=== PATIENT | female | born 1995 | race Caucasian/White ===

== ENCOUNTER 2020-08-14 07:53 | Inpatient (IN) | payer OTHER, SELFPAY ==
[2020-08-14] VITALS (84 sets, daily range): BP systolic 100–189; BP diastolic 55–110; PULSE 73–116; RESP 17–18; TEMP 35.9–36.6; O2SAT 73–100; BMI 29.9
[2020-08-14 08:33] LABS: Basophils % 0.3 %; Eosinophils # 0.1 10^3/uL (0.0-0.8); Eosinophils % 1.7 %; Hemoglobin 11.5 g/dL (11.5-15.3); Lymphocytes # 1.3 10^3/uL (0.8-4.8); Lymphocytes % 17.1 %; Mean Corpuscular HGB Conc 33.8 g/dL (30.0-36.0); Mean Corpuscular Hemoglobin 30.4 pg (28.0-34.0); Mean Corpuscular Volume 89.9 fL (81-99); Mean Platelet Volume 10.6 fL (7.4-10.4); Monocytes # 0.7 10^3/uL (0.2-0.9); Monocytes % 8.7 %; Neutrophils # 5.64 10^3/uL (1.8-7.7); Neutrophils % 71.8 %; Nucleated Red Blood Cells % 0 %; Platelet Count 257 10^3/cmm (130-400); Red Blood Count 3.78 10^6/uL (4.1-5.3); Red Cell Distribution Width 12.5 % (12.1-15.1); White Blood Count 7.8 10^3/uL (4.0-10.0)
[2020-08-14] MEDS: dextrose 5%-lactated ringers 1,000 ML 125 ML IV ×2 (08:52→16:29)
[2020-08-14] MEDS: oxytocin 30 UNIT/500 ML BAG IV (08:53)
--- NOTE | 2020-08-14 13:54 | PM.OPHPUD ---
Labor & Delivery H&P Update Date of Procedure: August 14, 2020 Date H&P Performed: 08/12/20 H&P update information: I have reviewed H&P completed within last 30 days Admission Diagnosis: -induced hypertension Other information: The patient was admitted for induction at 39 weeks gestation. She had had elevated blood pressures in office but her highest 1 today has been 141/87. She has been started on Pitocin and is at 28 units. I just performed artificial rupture of membranes with a small amount of blood-tinged but otherwise clear fluid. Continue expectant management Related Problem List Diagnoses (1) -induced hypertension in third trimester:
[2020-08-14] MEDS: fentaNYL 50 mcg/mL INJ 2mL IVP ×3 (15:32→17:32)
[2020-08-14] MEDS: lactated ringers 1,000 ML 999 ML IV ×2 (17:29→18:36)
--- NOTE | 2020-08-14 18:31 | ANES.PREANE2 ---
Pre-Anesthetic Assessment Pre-Anesthetic Assessment: Height/Weight: Height 1.75 m Weight 92.079 kg Temp Pulse Resp BP 97.0 F L 92 18 159/89 08/14/20 16:08 08/14/20 18:25 08/14/20 17:32 08/14/20 18:25 Preop Diagnosis: labor pains Proposed Procedure: epidural Was Beta Maicol taken within 24 hours: N/A Was Clonidine taken within 24 hours: N/A Social: Social History: No alcohol and No tobacco Exam: Pre-Anes Outpt Exam: alert, oriented x 3, clear to auscultation bilaterally and regular rate & rhythm Airway: Submandibular: WNL Cervical ROM: WNL MP: 2 Dentition: Full Pulmonary: Pulmonary: None reported CV/HEM: CV/HEM: HTN : : None reported Hepatic: Hepatic: None reported Metabolic: Metabolic: None reported Musc/skel: Musc/skel: None reported Neuropsych: Neuropsych: None reported Anesthetic Plan: ASA status: 2 Anesthesia: Regional (specify below) Risk of > 500 ml blood loss (7ml/kg in children): No Meds/Allergies Current Medications: Current Medications Generic Name Dose Route Start Last Admin Trade Name Freq PRN Reason Stop Dose Admin Fentanyl 25 - 100 mcg 08/14/20 13:48 08/14/20 17:32 Fentanyl 50 Mcg/ Ml Inj 2ml IVP 75 mcg Q1H PRN Administration SEVERE PAIN Oxytocin 30 unit in 500 ml s @ 2 mls/hr 08/14/20 08:00 08/14/20 13:13 Pitocin IV 28 milliunit/min .Q24H ELANA 28 mls/hr Titration Protocol 2 MILLIUNIT/MIN Dextrose/Lactated Ringer's 1,000 mls @ 125 m ls/hr 08/14/20 08:00 08/14/20 17:30 Dextrose 5%-Lact ated Ringers IV 0 mls/hr .Q8H ELANA Infusion Lactated Ringer's 1,000 mls @ 999 m ls/hr 08/14/20 13:51 08/14/20 17:29 Lactated Ringers IV 999 mls/hr .Q1H1M PRN Administration See label comment s PFSH Anesthesia Female Reproductive History: : 1 Data Anesthesia CBC & Chem 7: 08/14/20 08:10 Other Labs: Laboratory Results - last 48 hr 08/14/20 08:10 WBC 7.8 RBC 3.78 L Hgb 11.5 Hct 34.0 L MCV 89.9 MCH 30.4 MCHC 33.8 RDW 12.5 Plt Count 257 MPV 10.6 H Neut % (Auto) 71.8 Lymph % (Auto) 17.1 [place] % (Auto) 8.7 Eos % (Auto) 1.7 Baso % (Auto) 0.3 Neut # (Auto) 5.64 Lymph # (Auto) 1.3 [place] # (Auto) 0.7 Eos # (Auto) 0.1 Baso # (Auto) 0.0 Nucleated RBC % (auto) 0 Nucleated RBCs # 0.0 Cardiac Studies: No Data to Display
--- NOTE | 2020-08-14 18:57 | ANES.PROC ---
Anesthesia Procedures Procedure/Date: 08/14/20 epidural Procedure Narrative: epidural complete, bolus given, epidural pump initiated with PROCUREMENT COORDINATOR education given, vitals taken during procedure using OBIX system and satisfactory throughout, patient admits to decrease pain, report of procedure to OB RN Epidural: Time Out Performed: Yes Consents Signed: Procedure Consent Consent: requested by attending/covering physician, from patient, risks and benefits reviewed and patient agrees to proceed Lumbar Level: L3-L4 Epidural position: sitting Epidural procedure: sterile prep of area, 1% lidocaine to numb the area (3 mL), 18 g needle, negative for paresthesia passed, neg for paresthesia, test dose given, 1.5% xylocaine 1:200k epi (5 mL), 0.2% Ropivacaine bolus ml (5 mL), placed PCEA, no systemic response, sterile dressing applied, L.U.D. no apparent complications and 0.2% Ropiavacaine @ mls/hr (13 mL/hr)
[2020-08-14] MEDS: ondansetron 2 mg/ML SDV 2 mL 4 MG IVP (22:34)
[2020-08-15] VITALS (59 sets, daily range): BP systolic 86–166; BP diastolic 53–100; PULSE 78–127; RESP 18; TEMP 36.1–37.7; O2SAT 90–100
[2020-08-15] MEDS: dextrose 5%-lactated ringers 1,000 ML 125 ML IV (00:55)
[2020-08-15] MEDS: oxytocin 30 UNIT/500 ML BAG 600 UNIT IV (01:57)
[2020-08-15] MEDS: lidocaine 2% INJ 20 mL INJECTION (02:10)
--- NOTE | 2020-08-15 02:16 | P.PCNOB_ITS ---
Delivery Note: Date of delivery: August 15, 2020 Pre-Delivery Course: The patient had routine care at [facility]. There were no complications of the until her 38-week visit when she had elevated blood pressures. They were mildly elevated 140/92, 138/100, and did not require medication. Decision was made to go ahead and induce at 39 weeks gestation. Delivery: This is a 25-year-old G1 now P1 at 39 weeks 1day gestation who was admitted for induction secondary to -induced hypertension. The mother cervix was relatively favorable and she was started on Pitocin. She underwent artificial rupture of membranes with clear fluid. Rupture of membranes was approximately 12 hours prior to delivery. She received an epidural for pain management. She had a normal spontaneous vaginal delivery of a viable female weight 3770 g, 8 pounds 5 ounces over an intact perineum. The infant was suctioned at delivery and placed on the mother's chest. The cord was clamped and cut. The placenta was delivered grossly intact and normal to inspection. There was a second-degree left vaginal laceration that was sutured using 3-0 chromic. Estimated blood loss 350 mL. Mother and were doing well after delivery. A&P Assessment and plan (1) -induced hypertension in third trimester: Status: Acute (2) Normal spontaneous vaginal delivery: Status: Acute Coding Level of Care Code Acute Armhole Baster Hand for Chg Fwd Diagnoses -induced hypertension in third trimester O13.3 Normal spontaneous vaginal delivery O80
[2020-08-15] MEDS: miSOPROStol 200 mcg Tablet 800 MCG PO (03:55)
--- NOTE | 2020-08-15 05:14 | PC.NURSE ---
PP bleeding 0353: 340 mL 0404: 105 mL 0455: 60 mL total 505 mL
[2020-08-15] MEDS: prenatal vitamin Capsule 1 CAP PO (08:00)
[2020-08-15] MEDS: ibuprofen 800 mg tablet PO ×3 (08:00→21:12)
[2020-08-15] MEDS: benzocaine-menthol 78 gm Canister 1 SPRAY TOPICAL (08:01)
[2020-08-15] MEDS: docusate sodium 100 mg Capsule PO ×2 (08:01→18:06)
[2020-08-15] MEDS: lanolin oint 7 gm 1 APPLIC TOPICAL (08:01)
[2020-08-15] MEDS: acetaminophen 325 mg Tablet 650 MG PO (13:50)
[2020-08-15 14:03] LABS: Hematocrit 25.4 % (37.0-47.0); Hemoglobin 8.8 g/dL (11.5-15.3); Mean Corpuscular HGB Conc 34.6 g/dL (30.0-36.0); Mean Corpuscular Hemoglobin 31.4 pg (28.0-34.0); Mean Corpuscular Volume 90.7 fL (81-99); Mean Platelet Volume 10.9 fL (7.4-10.4); Platelet Count 251 10^3/cmm (130-400); Red Cell Distribution Width 12.6 % (12.1-15.1); White Blood Count 15.5 10^3/uL (4.0-10.0)
--- NOTE | 2020-08-15 19:51 | PC.NURSE ---
education provided on positioning, deep latch.
[2020-08-16] MEDS: prenatal vitamin Capsule 1 CAP PO (09:30)
[2020-08-16] MEDS: ibuprofen 800 mg tablet PO (09:30)
[2020-08-16] MEDS: docusate sodium 100 mg Capsule PO (09:31)
[2020-08-16 11:10] VITALS: BP 136/70; PULSE 78; TEMP 36
[2020-08-16] MEDS: acetaminophen 325 mg Tablet 650 MG PO (11:13)
--- NOTE | 2020-08-16 12:18 | P.DS_ITS ---
Discharge Providers BIG DATA PLATFORM ARCHITECT Date of Admission: 08/14/20 07:53 Date of Discharge: 08/16/20 Attending Provider at Admission: Danae Gonzalez MD Attending Provider at Discharge: Danae Gonzalez MD Primary Care Provider: Danae Gonzalez MD Diagnoses at Discharge Discharge Diagnosis (1) -induced hypertension in third trimester: Status: Acute (2) Normal spontaneous vaginal delivery: Status: Acute Hospital Course Hospital Course This is a 25-year-old G1 now P1 who was admitted for induction at 39 weeks gestation secondary to -induced hypertension. She had a normal spontaneous vaginal delivery of a viable female . Mother and infant did well after delivery. On day #1 she was ambulating, tolerating a regular diet, had decreased vaginal bleeding and was comfortable with discharge home Information Peripartum Data: Infant Delivery Method: Vaginal Physical Exam HENMT: COMMON NORMALS: normocephalic and atraumatic HEAD & SCALP: normocephalic and atraumatic Eye: COMMON NORMALS: Equal, round and reactive pupils present and EOMs intact bilaterally PUPIL: Yes Equal, round and reactive pupils present GI: COMMON NORMALS: Soft to palpation (Fundus firm U- 2) and non-tender PALPATION: Yes Soft to palpation (Fundus firm U- 2) Extremity: GENERAL: No calf tenderness and Yes edema Urinary Catheter Management^: Arguello: Cath Placed During This Visit: yes, but has since been removed by the nurse Reason for Continuing Indwelling Catheter: Decision to DC Catheter Urinary Catheter Date of Insertion: 08/14/20 Urinary Catheter Time of Insertion: 19:55 Date Urinary Catheter Removed: 08/15/20 Time Urinary Catheter Discontinued: 01:17 Discharge Data Data Completed and Pending: Labs from last 24 hours 08/15/20 13:49 WBC 15.5 H RBC 2.80 L Hgb 8.8 L Hct 25.4 L MCV 90.7 MCH 31.4 MCHC 34.6 RDW 12.6 Plt Count 251 MPV 10.9 H Vitals: Last Vital Signs Temp 96.8 F L 08/16/20 11:10 Pulse 78 08/16/20 11:10 Resp 18 08/15/20 02:32 BP 136/70 08/16/20 11:10 Pulse Ox 99 08/15/20 05:33 Discharge Plan Discharge Patient Disposition: Home Condition: Stable Prescriptions: No Action No Known Home Medications RF: 0 Discharge Orders: Discharge Order (Routine); Ordered 08/16/20 Ordered By: Danae Gonzalez Referrals: Danae Gonzalez MD [Primary Care Provider] - 1 month Discharge Diet: Usual diet Discharge Activity: Limit activity as instructed Patient Instructions: Opioid Safety Discharge Attestations BIG DATA PLATFORM ARCHITECT Time Spent in Discharge Care*: less than 30 min Coding Level of Care Code Acute Advisory Intern for Chg Fwd Diagnoses -induced hypertension in third trimester O13.3 Normal spontaneous vaginal delivery O80
[2020-08-16] MEDS: measles,mumps,rubella pf Vial (w/diluent) 0.5 ML SUBCUT (12:49)
[2020-08-16] MEDS: lanolin oint 7 gm 1 APPLIC TOPICAL (13:39)
== END 2020-08-16 13:45 | disposition home or self-care (01) | DRG 807 ==
PROVIDERS: Admitting Provider Family Medicine; PCP Family Medicine; Visit Provider Family Medicine
DX: O13.4 Gestational [pregnancy-induced] hypertension without significant proteinuria, complicating childbirth (principal); Z37.0 Single live birth; Z3A.39 39 weeks gestation of pregnancy; Z23 Encounter for immunization
CPT/HCPCS: 36415; 51702; 59025; 59409; 85025; 85027; 90707; 96372; 96374; 96375; 98960; J2405; J2795; J3010

== ENCOUNTER 2022-10-24 04:41 | Inpatient (IN) | payer OTHER, SELFPAY ==
[2022-10-24] VITALS (143 sets, daily range): BP systolic 100–208; BP diastolic 50–109; PULSE 76–121; RESP 15–18; TEMP 36.4–36.7; O2SAT 77–100; BMI 31.8
[2022-10-24] MEDS: dextrose 5%-lactated ringers 1,000 ML 125 ML IV ×2 (05:56→16:22)
[2022-10-24] MEDS: ampicillin 2,000 MG in sodium chloride 0.9% (plus) 50 ML 100 MG IV (05:57)
[2022-10-24 05:59] LABS: Basophils % 0.1 %; Eosinophils # 0.1 10^3/uL (0.0-0.8); Eosinophils % 0.9 %; Hematocrit 35.2 % (37.0-47.0); Hemoglobin 11.9 g/dL (11.5-15.3); Lymphocytes # 1.3 10^3/uL (0.8-4.8); Lymphocytes % 15.4 %; Mean Corpuscular HGB Conc 33.8 g/dL (30.0-36.0); Mean Corpuscular Hemoglobin 30.4 pg (28.0-34.0); Mean Corpuscular Volume 89.8 fl (81-99); Mean Platelet Volume 10.5 fL (7.4-10.4); Monocytes # 0.7 10^3/uL (0.2-0.9); Monocytes % 8.2 %; Neutrophils # 6.16 10^3/uL (1.8-7.7); Nucleated Red Blood Cells % 0 %; Platelet Count 225 10^3/cmm (130-400); Red Blood Count 3.92 10^6/uL (4.1-5.3); Red Cell Distribution Width 12.2 % (12.1-15.1); White Blood Count 8.2 10^3/uL (4.0-10.0)
[2022-10-24] MEDS: ampicillin 1,000 MG in sodium chloride 0.9% (plus) 50 ML 100 MG IV ×3 (09:32→18:19)
[2022-10-24] MEDS: ondansetron 2 mg/ML SDV 2 mL 4 MG IVP ×2 (12:56→20:01)
[2022-10-24] MEDS: fentaNYL 50 mcg/mL INJ 2mL IVP (13:17)
[2022-10-24] MEDS: lactated ringers 1,000 ML 999 ML IV ×3 (14:01→16:41)
--- NOTE | 2022-10-24 15:18 | P.ANESASSM_ITS ---
Pre-Anesthetic Assessment Height/Weight: Height 1.75 m Weight 97.976 kg Temp Pulse Resp BP Pulse Ox O2 Del Method 97.9 F 106 H 18 126/85 100 Room Air 10/24/22 04:41 10/24/22 15:15 10/24/22 13:17 10/24/22 15:15 10/24/22 15:15 10/24/22 06:43 Familial anesthetic complications: none Was Beta Maicol taken within 24 hours: N/A Was Clonidine taken within 24 hours: N/A Social No alcohol and No tobacco Exam alert, oriented x 3, clear to auscultation bilaterally and regular rate & rhythm Airway Mallampati: Class II Dentition: full Anesthetic Plan ASA status: 2 Anesthesia: Regional (specify below) Risk of > 500 ml blood loss (7ml/kg in children): No Medications/Allergies Home Medications Medication Instructions Recorded Confirmed Last Taken Type 1 tab PO DAILY 10/24/22 10/24/22 10/23/22 History Allergies Allergy/AdvReac Type Severity Reaction Status Date / Time No Known Allergies Allergy Verified 10/24/22 07:19 Current Medications Generic Name Dose Route Start Last Admin Trade Name Freq PRN Reason Stop Dose Admin Fentanyl 25 - 100 mcg 10/24/22 04:41 10/24/22 13:17 Fentanyl 50 Mcg/Ml Inj 2ml IVP 25 mcg Q1H PRN Administration SEVERE PAIN Lactated Ringer's 1,000 mls @ 999 mls/hr 10/24/22 04:41 10/24/22 14:01 Lactated Ringers IV 999 mls/hr .Q1H1M PRN Administration Per L&D Rescitation Protocol Dextrose/Lactated Ringer's 1,000 mls @ 125 mls/hr 10/24/22 04:45 10/24/22 09 :38 Dextrose 5%-Lactated Ringers IV 125 mls/hr .Q8H ELANA Infusion Ampicillin Sodium 1,000 mg/ 50 mls @ 100 mls/hr 10/24/22 08:45 10/24/22 14:00 Sodium Chloride IV 100 mls/hr Q4H ELANA Administration Protocol Oxytocin 30 unit/ Sodium 503 mls @ 1 mls/hr 10/24/22 09:30 10/24/22 14:00 Chloride IV 10 mls/hr .Q24H ELANA 10 mls/hr Titration Protocol Ondansetron HCl 4 mg 10/24/22 04:41 10/24/22 12:56 Ondansetron 2 Mg/Ml Sdv 2 Ml IVP 4 mg Q4H PRN Administration NAUSEA AND VOMITING PFSH Anesthesia Female Reproductive History : 2 Data Anesthesia 10/24/22 05:55 Short CBC 10/24/22 Range/Units 05:55 WBC 8.2 (4.0-10.0) 10^3/uL Hgb 11.9 (11.5-15.3) g/dL Hct 35.2 L (37.0-47.0) % MCV 89.8 (81-99) fl Plt Count 225 (130-400) 10^3/cmm Neut % (Auto) 75.0 % Neut # (Auto) 6.16 (1.8-7.7) 10^3/uL Cardiac Studies: No Data to Display
--- NOTE | 2022-10-24 15:19 | ANES.PROC ---
Anesthesia Procedures Procedure/Date: 10/24/22 Epidural: Time Out Performed: Yes Consents Signed: Procedure Consent Consent: requested by attending/covering physician, from patient, from other, risks and benefits reviewed and patient agrees to proceed Lumbar Level: L3-L4 Epidural position: sitting Epidural procedure: sterile prep of area, 1% lidocaine to numb the area, 18 g needle, negative for paresthesia passed, neg for paresthesia, 1.5% xylocaine 1:200k epi (5 cc), 0.2% Ropivacaine bolus ml (5), placed PCEA, no systemic response, sterile dressing applied, L.U.D. no apparent complications and 0.2% Ropiavacaine @ mls/hr (10) Additional Comments: LOT at 6 cm, threaded to 12 cm. Patient reported improved pain profile of subsequent contraction. tingling in L leg. States her previous epidural worked better one side also and she had to lay on her side.
--- NOTE | 2022-10-24 18:13 | PM.OPHPUD ---
Labor & Delivery H&P Update Date of Procedure: October 24, 2022 Date H&P Performed: 10/18/22 Admission Diagnosis: with SROM at 38 weeks 6 days gestation GBS positive Planned procedure: expectant management of labor and delivery
--- NOTE | 2022-10-24 18:19 | PM.OBGYPN ---
PREMIUM REPRESENTATIVE Subjective Subjective: Interval history: This is a 27-year-old at 38 weeks 6 days gestation who presented this morning with spontaneous rupture of membranes. She was noted to be GBS positive and was started on ampicillin protocol. Her contractions were spacing out and she was not making much cervical change so she was started on Pitocin. She received an epidural for pain management. I was notified by nursing that after her epidural and once she was 8 cm she began having deep variable decelerations. IV fluid bolus was given and multiple position changes were performed. The Pitocin was cut in half. The patient continued to have deep variables and when I presented I placed a scalp electrode so that they could be more accurately monitored. We also placed an internal pressure catheter to monitor the strength of contractions but unfortunately it was not functioning properly so it was removed. During all of this the variables resolved. Throughout all of it there was moderate variability with accelerations. Contractions were palpating minimal to mild. The Pitocin was increased back to 10. Labor: Dilation (cm): 8 Effacement (%): 90 Station: -2 Amniotic Membrane Status: Ruptured Monitor Mode: External Contraction Pattern: Irregular Vitals/I&O/Wt Last Vital Signs Temp 97.9 F 10/24/22 04:41 Pulse 97 10/24/22 18:14 Resp 18 10/24/22 13:17 BP 137/63 10/24/22 18:10 Pulse Ox 100 10/24/22 18:14 O2 Del Method Room Air 10/24/22 06:43 10/24/22 10/24/22 10/24/22 06:59 14:59 22:59 Intake Total 97.917 / 97.917 154.400 / 794.285 7076.250 / 3035.650 Balance 97.917 / 97.917 154.400 / 603.660 3662.250 / 3035.650 Weight last 48 hrs Weight 97.976 kg Physical Exam Narrative: Comfortable with epidural Data 10/24/22 05:55 A&P Assessment and plan (1) Non-reassuring heart tones complicating , antepartum: The variable decelerations resolved for a period of time. When we increased the Pitocin back to what it was they returned but they are not with every contraction, they are shorter and not as deep. There is still moderate variability with accelerations. I discussed with the parents that iif the deep prolonged variables return we may have to proceed with section. Hopefully she will continue to change without them returning and we can have a normal vaginal delivery. (2) with 38 completed weeks gestation: (3) Group B Streptococcus carrier state affecting : On ampicillin protocol Attestations Medical Necessity Statement*: Expectant management of labor and delivery Coding Level of Care Code Acute Code for Chg Fwd Diagnoses Non-reassuring heart tones complicating , antepartum O36.8390 with 38 completed weeks gestation Z3A.38 Group B Streptococcus carrier state affecting O99.820
--- NOTE | 2022-10-24 20:44 | P.PCNOB_ITS ---
Delivery Note: Date of delivery: October 24, 2022 Pre-Delivery Course: Mother had routine care at [facility]. There were no complications during the . Delivery: This is a 27-year-old at 38 weeks 6 days gestation who presented to labor and delivery with spontaneous rupture of membranes with clear fluid. She was GBS positive and started on ampicillin protocol. She received multiple doses of ampicillin prior to delivery. Her labor was augmented using Pitocin. She received an epidural for pain management. There was a period of time where she had some deep variables but these resolved. She only had to push through 2 contractions to have a normal spontaneous vaginal delivery of a viable female infant weight 3595 g, 7 pounds 15 ounces, Apgars 8 and 9 over an intact perineum. The was suctioned at delivery and placed on the mother's chest. The cord was clamped and cut. The placenta was delivered grossly intact and normal to inspection. There were no lacerations. Estimated blood loss 200 mL. Coding Level of Care Code Acute Code for Chg Fwd Diagnoses
[2022-10-24] MEDS: ibuprofen 800 mg tablet PO (22:14)
[2022-10-24] MEDS: calcium carbonate 500 mg Chew Tablet 1000 MG PO (23:56)
[2022-10-25] VITALS (9 sets, daily range): BP systolic 111–155; BP diastolic 69–93; PULSE 73–106; RESP 15–18; TEMP 36.7–37.1; O2SAT 97–98
[2022-10-25] MEDS: acetaminophen 325 mg Tablet 650 MG PO (06:38)
--- NOTE | 2022-10-25 08:00 | ANE.PACU2 ---
Inpatient post-anesthesia follow up: Airway intact: Yes Vital signs: Temperature 98.1 F Pulse Rate 86 Respiratory Rate 16 Blood Pressure 129/79 Pulse Oximetry 98 Oxygen Delivery Me thod Room Air Oxygen Flow Rate Fraction of Inspir ed Oxygen Hydration adequate: Yes Nausea and vomiting: Yes Pain level: 1 Mental status: Baseline
[2022-10-25] MEDS: prenatal vitamin Capsule 1 CAP PO (10:00)
[2022-10-25] MEDS: docusate sodium 100 mg Capsule PO ×2 (10:00→18:34)
[2022-10-25] MEDS: ibuprofen 800 mg tablet PO ×3 (10:00→20:59)
[2022-10-25 10:19] LABS: Hematocrit 30.8 % (37.0-47.0); Hemoglobin 10.4 g/dL (11.5-15.3); Mean Corpuscular HGB Conc 33.8 g/dL (30.0-36.0); Mean Corpuscular Hemoglobin 30.9 pg (28.0-34.0); Mean Corpuscular Volume 91.4 fl (81-99); Mean Platelet Volume 10.8 fL (7.4-10.4); Platelet Count 209 10^3/cmm (130-400); Red Blood Count 3.37 10^6/uL (4.1-5.3); Red Cell Distribution Width 12.3 % (12.1-15.1); White Blood Count 14.6 10^3/uL (4.0-10.0)
--- NOTE | 2022-10-25 17:01 | PM.PN ---
Subjective Subjective: Doing well. Bleeding has slowed down a lot. Vitals/I&O/Wt Last Vital Signs Temp 98.6 F 10/25/22 15:46 Pulse 76 10/25/22 15:46 Resp 18 10/25/22 15:46 BP 120/72 10/25/22 15:46 Pulse Ox 97 10/25/22 15:46 O2 Del Method Room Air 10/25/22 15:46 10/25/22 10/25/22 10/25/22 06:59 14:59 22:59 Intake Total 88.6 / 4584.250 Output Total 400 / 550 Balance -311.4 / 4034.250 Weight last 48 hrs Weight 97.976 kg Physical Exam Narrative: Alert and oriented, sitting up in bed, heart regular rate and rhythm, lungs clear to auscultation bilaterally, abdomen is soft and nontender, extremities do have edema but no calf tenderness. Data 10/25/22 10:12 A&P Assessment and plan (1) Normal spontaneous vaginal delivery: Attestations Medical Necessity Statement*: Routine care Coding Level of Care Code Acute Code for Chg Fwd Diagnoses Normal spontaneous vaginal delivery O80
[2022-10-26 04:15] VITALS: BP 113/74; PULSE 63; RESP 15; TEMP 36.8; O2SAT 99
[2022-10-26] MEDS: ibuprofen 800 mg tablet PO (09:43)
[2022-10-26] MEDS: docusate sodium 100 mg Capsule PO (09:44)
[2022-10-26] MEDS: prenatal vitamin Capsule 1 CAP PO (09:44)
[2022-10-26 10:00] VITALS: BP 134/72; PULSE 82; RESP 16; TEMP 36.6; O2SAT 97
[2022-10-26] MEDS: lanolin oint 7 gm 1 APPLIC TOPICAL (11:08)
--- NOTE | 2022-10-26 12:45 | P.DS_ITS ---
Discharge Providers Date of Admission: 10/24/22 04:41 Date of Discharge: October 26, 2022 Attending Provider at Admission: Danae Gonzalez MD Attending Provider at Discharge: Danae Gonzalez MD Primary Care Provider: Danae Gonzalez MD Diagnoses at Discharge Discharge Diagnosis (1) Normal spontaneous vaginal delivery: Status: Acute Reason for Visit Reason for Visit: Possible ROM Hospital Course Hospital Course This is a 27-year-old G2 now P2 who was admitted at 38 weeks 6 days gestation with spontaneous rupture of membranes. Her labor was augmented using Pitocin. She was GBS positive and received multiple doses of ampicillin prior to delivery. She had a normal spontaneous vaginal delivery of a viable female . Mother and infant were doing well after delivery. Mother was ambulating, tolerating a regular diet, had very decreased vaginal bleeding and was requesting discharge home. Physical Exam Narrative: Alert and oriented, sitting on bedside couch, abdomen soft and nontender, extremities have some edema but no calf tenderness Discharge Data Studies Completed and Pending Laboratory Results WBC 14.6 10^3/uL (4.0-10.0) H 10/25/22 10:12 RBC 3.37 10^6/uL (4.1-5.3) L 10/25/22 10:12 Hgb 10.4 g/dL (11.5-15.3) L 10/25/22 10:12 Hct 30.8 % (37.0-47.0) L 10/25/22 10:12 MCV 91.4 fl (81-99) 10/25/22 10:12 MCH 30.9 pg (28.0-34.0) 10/25/22 10:12 MCHC 33.8 g/dL (30.0-36.0) 10/25/22 10:12 RDW 12.3 % (12.1-15.1) 10/25/22 10:12 Plt Count 209 10^3/cmm (130-400) 10/25/22 10:12 MPV 10.8 fL (7.4-10.4) H 10/25/22 10:12 Neut % (Auto) 75.0 % 10/24/22 05:55 Lymph % (Auto) 15.4 % 10/24/22 05:55 [place] % (Auto) 8.2 % 10/24/22 05:55 Eos % (Auto) 0.9 % 10/24/22 05:55 Baso % (Auto) 0.1 % 10/24/22 05:55 Neut # (Auto) 6.16 10^3/uL (1.8-7.7) 10/24/22 05:55 Lymph # (Auto) 1.3 10^3/uL (0.8-4.8) 10/24/22 05:55 [place] # (Auto) 0.7 10^3/uL (0.2-0.9) 10/24/22 05:55 Eos # (Auto) 0.1 10^3/uL (0.0-0.8) 10/24/22 05:55 Baso # (Auto) 0.0 10^3/uL (0.0-0.1) 10/24/22 05:55 Nucleated RBC % (auto) 0 % 10/24/22 05:55 Nucleated RBCs # 0.0 /100WBC 10/24/22 05:55 Vitals Last Vital Signs Temp 97.9 F 10/26/22 10:00 Pulse 82 10/26/22 10:00 Resp 16 10/26/22 10:00 BP 134/72 10/26/22 10:00 Pulse Ox 97 10/26/22 10:00 O2 Del Method Room Air 10/26/22 10:00 Discharge Plan Discharge Patient Disposition: Home Condition: Stable Prescriptions: Continued 1 tab PO DAILY Discharge Orders: Discharge Order (Routine); Ordered 10/26/22 Ordered By: Danae Gonzalez Discharge Diet: Usual diet Discharge Activity: Limit activity as instructed Patient Instructions: Depression (DC), Bleeding (DC), Preeclampsia and Eclampsia After Delivery (GEN), OB Discharge Report, OB Food/Drug Interaction Guide, OB Care at Home, Opioid Safety, OB Vaginal Deliveries, Abnormal Bleeding Activity Restrictions/Additional Instructions: Nothing per vagina for 6 weeks. Discharge Attestations Time Spent in Discharge Care*: less than 30 min Quality Metrics Clinical Quality Measures [ No reported AMI, CVA or VTE this stay] Coding Level of Care Code Acute Code for Chg Fwd Diagnoses Normal spontaneous vaginal delivery O80
[2022-10-26 13:30] VITALS: BP 129/79; PULSE 86; RESP 16; TEMP 36.7; O2SAT 98
== END 2022-10-26 13:57 | disposition home or self-care (01) | DRG 807 ==
LOC: OPOB 07:46 → OBGYN 07:46
PROVIDERS: Admitting Provider Family Medicine; PCP Family Medicine; Visit Provider Family Medicine
DX: O99.824 Streptococcus B carrier state complicating childbirth (principal); Z37.0 Single live birth; O76 Abnormality in fetal heart rate and rhythm complicating labor and delivery; Z3A.38 38 weeks gestation of pregnancy
CPT/HCPCS: 36415; 59025; 59409; 85025; 85027; 96374; 96376; 99211; J0290; J2405; J2795; J3010; J7040; J7120; J7121